=== PATIENT | male | born 1980 | race Hispanic/Latino ===

== ENCOUNTER 2018-02-04 21:21 | Emergency (ER) | payer OTHER ==
[2018-02-04 21:35] VITALS: RESP 16; TEMP 98.2
--- NOTE | 2018-02-04 21:58 | ED PDOC ---
HPI: Skin/Bite Injury Time Seen by Provider: 02/04/18 21:39 Chief Complaint (Nursing): Finger,Hand,&Wrist Past Medical History Vital Signs: Last Vital Signs Temp 98.2 F 02/04/18 21:32 Pulse 78 02/04/18 21:32 Resp 16 02/04/18 21:32 BP 114/78 02/04/18 21:32 Pulse Ox 98 02/04/18 21:32 - Allergies Allergies/Adverse Reactions: Allergies Allergy/AdvReac Type Severity Reaction Status Date / Time amoxicillin Allergy RASH Verified 02/04/18 21:32 - ECG O2 Sat by Pulse Oximetry: 98 Disposition - Clinical Impression Clinical Impression: Finger laceration - Patient ED Disposition Is Patient to be Admitted: No Counseled Patient/Family Regarding: Diagnosis, Need For Followup - Disposition Disposition: Routine/Home Disposition Time: 21:54 Condition: STABLE Additional Instructions: Irrigated with water twice a day. Antibiotic ointment and dressing. Instructions: Skin Abrasions
[2018-02-04 22:10] VITALS: BP 115/70; PULSE 71
[2018-02-04 22:25] VITALS: O2SAT 98
== END 2018-02-04 22:09 | disposition home or self-care (01) ==
LOC: H.ER 21:21
DX: S61.212A Laceration without foreign body of right middle finger without damage to nail, initial encounter (principal); W26.8XXA Contact with other sharp object(s), not elsewhere classified, initial encounter; Y92.89 Other specified places as the place of occurrence of the external cause